=== PATIENT | female | born 1990 | race African-American/Black ===

== ENCOUNTER 2018-04-26 20:56 | Emergency (ER) | payer OTHER ==
[~2018-04-26] VITALS: Ht 167.6 cm; Wt 81.9 kg
[2018-04-26 21:01] VITALS: TEMP 36.8; Ht 167.6 cm; Wt 81.9 kg
[2018-04-26] MEDS ORDERED: IBUPROFEN 600 MG TAB PO STA (22:08)
[2018-04-26] MEDS ORDERED: ACETAMINOPHEN 500 MG TAB PO STA (22:08)
--- NOTE | 2018-04-26 22:37 | DIAGNOSTIC IMAGING REPORT ---
L WRIST MIN 3 VIEWS ROUTINE CLINICAL HISTORY: Left wrist pain status post trauma COMPARISON: None. DISCUSSION: No fractures or dislocations are visualized. IMPRESSION: No fractures identified. Electronically signed by: Emmanuel Jeter M.D. 04/26/2018 10:36 PM Dictated Date/Time: 04/26/2018 10:36 PM
--- NOTE | 2018-04-26 22:38 | DIAGNOSTIC IMAGING REPORT ---
R WRIST MIN 3 VIEWS ROUTINE CLINICAL HISTORY: Right wrist pain status post trauma COMPARISON: None. DISCUSSION: No fractures or dislocations are visualized. IMPRESSION: No fractures identified. Electronically signed by: Emmanuel Jeter M.D. 04/26/2018 10:37 PM Dictated Date/Time: 04/26/2018 10:36 PM
[2018-04-26 22:58] VITALS: BP 118/71; PULSE 69; O2SAT 100
--- NOTE | 2018-04-27 22:32 | EMERGENCY ROOM VISIT NOTE ---
History First contact with patient: 22:02 Chief Complaint: WRIST PAIN Stated Complaint: PAIN IN WRIST, SWOLLEN FINGERS History of Present Illness The patient is a 27 year old female who presents to the Emergency Room with complaints of bilateral wrist pain worsening over the past 3-4 days. The patient does not recall distinct injury or trauma to explain her symptoms. She is having swelling into her fingers with this. The patient states her symptoms are worse at night and make it difficult for her to sleep. 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 The patient does not have numbness or paresthesias. She does not have similar symptoms in the past. No fevers or chills. She rates her discomfort a 6/10. She has not taken anything [id number] for her discomfort. Review of Systems More than 10 systems were reviewed and otherwise negative with the exception of history of present illness. Past Medical/Surgical History No chronic medical disease Social History Smoking Status: Never Smoker Occupation Status: employed Physical Exam Vital Signs Date Time Temp Pulse Resp B/P (MAP) Pulse Ox O2 Delivery O2 Flow Rate FiO2 04/26/18 22:58 69 16 118/71 100 04/26/18 21:01 36.8 107 18 118/72 98 Room Air Physical Exam VITALS: Vitals are noted on the nurse's note and reviewed by myself. Vital signs stable. GENERAL: Well-developed, well-nourished, female, who is in no acute distress and resting comfortably. Patient is cooperative with the examination. HEART: Regular rate and rhythm without murmurs gallops or rubs. LUNGS: Clear to auscultation bilaterally without wheezes, rales or rhonchi. No retractions or accessory muscle use. MUSCULOSKELETAL: No muscle atrophy, erythema, or edema noted. No obvious tenderness of the bilateral wrists on palpation. No snuffbox tenderness. Negative Tinel's and Phalen's. Christmas Tree Contractor strength is 5/5 throughout. Medical Decision & Procedures ER Provider Diagnostic Interpretation: L WRIST MIN 3 VIEWS ROUTINE CLINICAL HISTORY: Left wrist pain status post trauma COMPARISON: None. DISCUSSION: No fractures or dislocations are visualized. IMPRESSION: No fractures identified. R WRIST MIN 3 VIEWS ROUTINE CLINICAL HISTORY: Right wrist pain status post trauma COMPARISON: None. DISCUSSION: No fractures or dislocations are visualized. IMPRESSION: No fractures identified. Medications Administered Medications (Trade) Dose Ordered Sig/Angel Route Start Time Stop Time Status Last Admin Dose Admin Acetaminophen (Tylenol Tab) 1,000 mg NOW STAT PO 04/26/18 22:08 04/26/18 22:10 DC 04/26/18 22:30 1,000 MG Ibuprofen (Motrin Tab) 600 mg NOW STAT PO 04/26/18 22:08 04/26/18 22:10 DC 04/26/18 22:30 600 MG ED Course Physical exam and history were performed. Nursing notes, EMR, and Medication List were personally reviewed. Patient appears to have bilateral wrist pain without distinct injury or trauma. The patient was given ibuprofen and Tylenol here in the department for comfort. X-rays were obtained and do not show acute fracture or dislocation per my and radiology interpretation. Overall the patient appears well for discharge home. I suspect her symptoms may be mechanical in nature or related to possible early carpal tunnel. I did discuss this at length with the patient and feel it is appropriate to follow with orthopedics for further care and management. The patient was given instructions on conservative treatment options and otherwise invited back to the ER with any new, worsening, or concerning symptoms. The chart was completed utilizing [employer] Speech Voice Recognition Software. Grammatical errors, random word insertions, pronoun errors, and incomplete sentences are an occasional consequence of this system due to software limitations, ambient noise, and hardware issues. Any formal questions or concerns about the content, text, or information contained within the body of this dictation should be directly addressed to the provider for clarification. . Medical Decision Differential diagnosis includes, but is not limited to: Sprain, strain, fracture , dislocation, subluxation, contusion, carpal tunnel, and others Impression Primary Impression: Pain in both wrists Departure Information Dispostion Home / Self-Care Condition GOOD Referrals No Doctor, Assigned (PCP) Moy Zelaya M.D. Forms HOME CARE DOCUMENTATION FORM, IMPORTANT VISIT INFORMATION Patient Instructions My [facility] Additional Instructions You were seen and evaluated today on an emergency basis only. This is not a substitute for, or an effort to provide, complete comprehensive medical care. It is not possible to recognize and treat all injuries or illnesses in a single emergency department visit. For this reason it is recommended that you followup with Orthopedics, Dr. Zelaya's office, with any ongoing or persisting symptoms. For baseline pain relief you may alternate ibuprofen and acetaminophen every 4 hours for pain control. Take 600 mg ibuprofen (Advil) and then 4 hours later take 1000 mg acetaminophen (Tylenol). Do not take more than 3000 mg acetaminophen in a single day. You are welcome to return to the emergency department anytime with new, worsening, or concerning symptoms.
== END 2018-04-26 23:00 | disposition home or self-care (01) ==
LOC: C.EDB 20:58 → EDSEX 20:58 → C.EDD 23:00
DX: M25.531 Pain in right wrist (principal); M25.532 Pain in left wrist

== ENCOUNTER 2018-11-01 22:38 | Observation (INO) ==
[2018-11-01] MEDS ORDERED: KETOROLAC 30 MG/ML VIAL IV STA (22:59)
[2018-11-01] MEDS ORDERED: SODIUM CHLORIDE 0.9% 1000ML 1,000 ML IV SCH (23:00)
[2018-11-01 23:36] LABS: Basophils # (auto) 0.04 K/uL (0-0.2); Basophils % (auto) 0.4 %; Eosinophils # (auto) 0.21 K/uL (0-0.5); Eosinophils % (auto) 2.1 %; Hematocrit (blood only) 37.7 % (37-47); Hemoglobin 12.9 g/dL (12.0-16.0); Immature Granulocytes # (auto) 0.02 K/uL (0.00-0.02); Immature Granulocytes % (auto) 0.2 %; Lymphocytes # (auto) 2.75 K/uL (1.2-3.4); Lymphocytes % (auto) 27.9 %; Mean Corpuscular Hgb Conc 34.2 g/dL (32-36); Mean Corpuscular Volume 86.1 fL (80-100); Mean Platelet Volume 10.8 fL (7.4-10.4); Monocytes # (auto) 0.61 K/uL (0.11-0.59); Monocytes % (auto) 6.2 %; Neutrophils # (auto) 6.21 K/uL (1.4-6.5); Neutrophils % (auto) 63.2 %; Platelet Count 302 K/uL (130-400); RDW Coefficient of Variation 12.3 % (11.5-14.5); RDW Standard Deviation 39.2 fL (36.4-46.3); Red Blood Count 4.38 M/uL (4.2-5.4); White Blood Count 9.84 K/uL (4.8-10.8)
[2018-11-01 23:41] LABS: Appearance Urine Clear (Clear); Bacteria Urine Automated Negative (Negative); Bilirubin Urine Negative (Negative); Cast Urine Automated 0 /lpf (0-5); Color Urine Yellow; Glucose Urine UA Negative (Negative); Ketones Urine Negative (Negative); Leukocyte Esterase Urine Negative (Negative); Nitrite Urine Negative (Negative); Protein Urine Negative (Negative); Specific Gravity Urine 1.009 (1.000-1.030); Urobilinogen Urine Negative (Negative); pH Urine 5.5 (4.5-7.5)
[2018-11-01 23:53] LABS: Albumin Level 3.8 gm/dl (3.4-5.0); BUN Creatinine Ratio 14.2 (10-20); Calcium 8.9 mg/dl (8.5-10.1); Creatinine Clr Calc Pharmacy 128.8 ml/min; Est GFR (Non-African American) 114.8; Potassium 3.5 mmol/L (3.5-5.1)
[2018-11-02 00:04] LABS: Albumin Globulin Ratio 0.9 (0.9-2); Bilirubin,Total 0.3 mg/dl (0.2-1); Globulin 4.3 gm/dl (2.5-4.0); Total Protein 8.1 gm/dl (6.4-8.2); Troponin I 0.016 ng/ml (0-0.045)
[2018-11-02 02:58] LABS: Magnesium 2.3 mg/dl (1.8-2.4)
[2018-11-02] MEDS ORDERED: KETOROLAC TROMETHAMINE 15 MG/ML VIAL IV PRN (02:59)
--- NOTE | 2018-11-02 03:00 | History & Physical Report ---
Date of Service November 02, 2018 Assessment & Plan (1) Chest pain: Atypical Likely musculoskeletal with reproducible tenderness Minimal troponin elevation OBS Medical telemetry NSAID rx trend troponin TTE RE chest pain Cardiology consult RE chest pain (ER provider already in touch with Dr. Jimenez.) DVT prophylaxis. SCDs Full code History of Present Illness Chief Complaint: Chest pain Primary Care Provider: NO PCP No significant medical history. 2 weeks history of intermittent chest pain noted on different areas of the chest , worse with motion. Nonpleuritic, no S OB, no fever, no chills. 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 Today, chest pain more intense. Patient also noted achy right-sided abdominal pain, without nausea without emesis. No constipation, no diarrhea, no dysuria symptoms. 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 Allergies Allergy/AdvReac Type Severity Reaction Status Date / Time shellfish derived Allergy Swelling Verified 11/01/18 23:16 of Lip/Tongue/Throat Home Medications Home Medications Medication Instructions Recorded Confirmed Type No Known Home Medications 11/01/18 11/01/18 History Past Med/Surg History Social History Current Living Situation: Other Current Living Situation Comment: roommate Other Information That Helps Us Care for You: No Feels Safe at Home: Yes Safety Concerns: Feels Safe At This Time Smoking Status: Never smoker Hx Alcohol Use: Yes Alcohol Intake Frequency: a few times a month Hx Substance Use: No Beliefs That Will Affect Care: None Preferred Language: Uzbek Communication Ability: Effective Grievance And Appeals Specialist Required: No Review of Systems As per HPI, all 10 systems reviewed, all other ROS negative Physical Exam 2 Vital Signs (Past 24 Hours): Last Vital Signs Temp 36.7 C 11/01/18 22:43 Pulse 83 11/02/18 02:01 Resp 23 11/02/18 02:01 BP 115/74 11/02/18 02:00 Pulse Ox 100 11/02/18 02:01 Physical Exam: GENERAL: Slightly anxious, obese , no respiratory distress SKIN: Normal color, warm HEENT: [place] palpebral conjunctivae, no ptosis, dry buccal mucosa NECK : Supple, short, no tenderness CHEST : CTA, anterior chest wall tenderness HEART : RRR, no obvious murmurs ABDOMEN: Some distention, nontender EXTREMITIES : No LE swelling/tenderness, no other conspicuous deformities noted NEUROLOGIC : Coherent, no facial asymmetry, no other gross focality Results & Data Laboratory Results Laboratory Results WBC 9.84 K/uL (4.8-10.8) 11/01/18 23:15 RBC 4.38 M/uL (4.2-5.4) 11/01/18 23:15 Hgb 12.9 g/dL (12.0-16.0) 11/01/18 23:15 Hct 37.7 % (37-47) 11/01/18 23:15 MCV 86.1 fL (80-100) 11/01/18 23:15 MCH 29.5 pg (25-34) 11/01/18 23:15 MCHC 34.2 g/dL (32-36) 11/01/18 23:15 RDW Std Deviation 39.2 fL (36.4-46.3) 11/01/18 23:15 RDW Coeff of Orlin 12.3 % (11.5-14.5) 11/01/18 23:15 Plt Count 302 K/uL (130-400) 11/01/18 23:15 MPV 10.8 fL (7.4-10.4) H 11/01/18 23:15 Immature Gran % (Auto) 0.2 % 11/01/18 23:15 Neut % (Auto) 63.2 % 11/01/18 23:15 Lymph % (Auto) 27.9 % 11/01/18 23:15 [place] % (Auto) 6.2 % 11/01/18 23:15 Eos % (Auto) 2.1 % 11/01/18 23:15 Baso % (Auto) 0.4 % 11/01/18 23:15 Immature Gran # (Auto) 0.02 K/uL (0.00-0.02) 11/01/18 23:15 Neut # (Auto) 6.21 K/uL (1.4-6.5) 11/01/18 23:15 Lymph # (Auto) 2.75 K/uL (1.2-3.4) 11/01/18 23:15 [place] # (Auto) 0.61 K/uL (0.11-0.59) H 11/01/18 23:15 Eos # (Auto) 0.21 K/uL (0-0.5) 11/01/18 23:15 Baso # (Auto) 0.04 K/uL (0-0.2) 11/01/18 23:15 D-Dimer < 190 ug/L FEU (0-500) 11/01/18 23:15 Sodium 137 mmol/L (136-145) 11/01/18 23:15 Potassium 3.5 mmol/L (3.5-5.1) 11/01/18 23:15 Chloride 108 mmol/L (98-107) H 11/01/18 23:15 Carbon Dioxide 27 mmol/L (21-32) 11/01/18 23:15 Anion Gap 2.0 (3-11) L 11/01/18 23:15 BUN 10 mg/dl (7-18) 11/01/18 23:15 Creatinine 0.72 mg/dl (0.6-1.2) 11/01/18 23:15 Est Cr Clr Drug Dosing 128.8 ml/min 11/01/18 23:15 Est GFR ( Amer) 133.0 11/01/18 23:15 Est GFR (Non-Af Amer) 114.8 11/01/18 23:15 BUN/Creatinine Ratio 14.2 (10-20) 11/01/18 23:15 Glucose 105 mg/dl (70-99) H 11/01/18 23:15 Calcium 8.9 mg/dl (8.5-10.1) 11/01/18 23:15 Magnesium 2.3 mg/dl (1.8-2.4) 11/01/18 23:15 Total Bilirubin 0.3 mg/dl (0.2-1) 11/01/18 23:15 AST 13 U/L (15-37) L 11/01/18 23:15 ALT 18 U/L (12-78) 11/01/18 23:15 Alkaline Phosphatase 88 U/L (45-117) 11/01/18 23:15 Troponin I 0.022 ng/ml (0-0.045) 11/02/18 00:57 Total Protein 8.1 gm/dl (6.4-8.2) 11/01/18 23:15 Albumin 3.8 gm/dl (3.4-5.0) 11/01/18 23:15 Globulin 4.3 gm/dl (2.5-4.0) H 11/01/18 23:15 Albumin/Globulin Ratio 0.9 (0.9-2) 11/01/18 23:15 Lipase 56 U/L (73-393) L 11/01/18 23:15 TSH 3.740 uIu/ml (0.300-4.500) 11/01/18 23:15 Urine Color Yellow 11/01/18 23:05 Urine Appearance Clear (Clear) 11/01/18 23:05 Urine pH 5.5 (4.5-7.5) 11/01/18 23:05 Ur Specific [place] 1.009 (1.000-1.030) 11/01/18 23:05 Urine Protein Negative (Negative) 11/01/18 23:05 Urine Glucose (UA) Negative (Negative) 11/01/18 23:05 Urine Ketones Negative (Negative) 11/01/18 23:05 Urine Blood Trace (Negative) H 11/01/18 23:05 Urine Nitrite Negative (Negative) 11/01/18 23:05 Urine Bilirubin Negative (Negative) 11/01/18 23:05 Urine Urobilinogen Negative (Negative) 11/01/18 23:05 Ur Leukocyte Esterase Negative (Negative) 11/01/18 23:05 Urine WBC (Auto) 1-5 /hpf (0-5) 11/01/18 23:05 Urine RBC (Auto) 0-4 /hpf (0-4) 11/01/18 23:05 U Hyaline Cast (Auto) 0 /lpf (0-5) 11/01/18 23:05 U Epithel Cells (Auto) 10-20 /lpf (0-5) H 11/01/18 23:05 Urine Bacteria (Auto) Negative (Negative) 11/01/18 23:05 POC Ur Test NEG (NEG) 11/01/18 23:05 Diagnostic Findings Chest x-ray as per my interpretation borderline cardiomegaly CT abdomen pelvis initial read no acute pathology EKG as per my interpretation rate 80, NSR, T wave flattening inferior leads
[2018-11-02] MEDS ORDERED: IOVERSOL 100ml IV PRN (03:44)
[2018-11-02] MEDS ORDERED: KETOROLAC TROMETHAMINE 15 MG/ML VIAL ONE (03:45)
[2018-11-02] MEDS ORDERED: ACETAMINOPHEN 325 MG TAB PO PRN (04:25)
[2018-11-02] MEDS ORDERED: LORazepam 0.5 MG/1 ML VIAL IV PRN (04:25)
[2018-11-02] MEDS ORDERED: NSS + 20MEQ KCL 20 MEQ/1,000 ML BAG IV SCH (04:25)
[2018-11-02] MEDS ORDERED: PROCHLORPERAZINE 5 MG in SYRINGE 4 ML IV PRN (04:25)
[2018-11-02] MEDS ORDERED: TRAMADOL HCL 50 MG TABLET PO PRN (04:25)
[2018-11-02 06:12] LABS: Partial Thromboplastin Ratio 1.1; Partial Thromboplastin Time 29.7 Seconds (21.0-31.0)
[2018-11-02 06:20] LABS: C Reactive Protein 0.44 mg/dl (0-0.29); Troponin I < 0.015 ng/ml (0-0.045)
[2018-11-02] MEDS ORDERED: NSS + 20MEQ KCL 20 MEQ/1,000 ML BAG IV ONE (06:34)
--- NOTE | 2018-11-02 06:48 | CT Scan Report ---
CT abd pelvis IV con only CLINICAL HISTORY: Right-sided abdominal pain COMPARISON STUDY: None. TECHNIQUE: The patient was scanned in a dynamic helical fashion during intravenous administration of 93 cc of Optiray 320. A dose lowering technique was utilized adhering to the principles of ALARA. CT DOSE: 385.44 mGy.cm FINDINGS: Lower chest: The heart is normal in size and configuration, without pericardial effusion. The lung ba ses and pleural spaces are clear. Liver: The contrast-enhanced liver is normal in size, contour, and attenuation. There is no intrahepa tic biliary ductal dilatation. The hepatic veins and portal veins are patent. Gallbladder: Unremarkable. Spleen: Normal in size and attenuation. Pancreas: Unremarkable. Adrenal glands: Unremarkable. Kidneys: There is a 3 mm left renal hypodensity likely representing a cyst. There is no hydronephrosi s. Bowel: There are no transition zones indicate bowel obstruction. There is no evidence of acute divert iculitis. The appendix appears normal. Peritoneum: There is no intraperitoneal free air or abdominal ascites. Vasculature: The abdominal aorta is normal in course and caliber. Adenopathy: None. Pelvic viscera: The bladder, and pelvic viscera are unremarkable. Skeletal structures: No destructive osseous lesions are seen. IMPRESSION: 1. No acute intra-abdominal or pelvic findings 2. No evidence of bowel obstruction. No evidence of free air 3. Normal appendix. No evidence of acute diverticulitis. Electronically signed by: Emmanuel Jeter M.D. 11/02/2018 6:47 AM
--- NOTE | 2018-11-02 07:01 | XRay Report ---
XR chest 2V routine HISTORY: Atypical chest pain COMPARISON: None. FINDINGS: The lungs are clear. Cardiac silhouette is normal in size. No pleural effusions. No pneumot horax. IMPRESSION: No acute process. Electronically signed by: Mark Pierre M.D. 11/02/2018 6:59 AM
[2018-11-02] MEDS ORDERED: IBUPROFEN 200 MG TAB PO PRN (07:06)
--- NOTE | 2018-11-02 07:35 | Emergency Department Note ---
History of Present Illness General Chief complaint: Cardiac Assessment Stated complaint: DULL CHEST PAINS, DISCOMFORT Time Seen by Provider: 11/01/18 22:50 History of Present Illness Maximum Pain Intensity: 4 This is a 28-year-old female presenting to the emergency department with complaint of chest pain symptoms for the past 2 weeks. Patient states her symptoms initially began in the right side chest, and then the central chest. She was participating in a gymnastics-like activity tonight, roughly 2-3 hours prior to arrival, when she felt a squeezing in the left side of her chest. The patient does not have a history of diabetes or other chronic medical disease. She has not taken anything [id number] for her discomfort which she currently rates a 4/10. The pain does not currently radiate, and is constant. She has not had lightheadedness or dizziness. She does not report obvious abdominal discomfort, and denies chance of . Activity does seem to worsen her symptoms. Home Medications Home Medications Medication Instructions Recorded Confirmed Type No Known Home Medications 11/01/18 11/01/18 History Allergies Allergy/AdvReac Type Severity Reaction Status Date / Time shellfish derived Allergy Swelling Verified 11/01/18 23:16 of Lip/Tongue/Throat Past Med/Surg History Medical History No chronic diseases present No significant past surgical history Social History Current Living Situation: Other Current Living Situation Comment: roommate Other Information That Helps Us Care for You: No Feels Safe at Home: Yes Safety Concerns: Feels Safe At This Time Smoking Status: Never smoker Hx Alcohol Use: Yes Alcohol Intake Frequency: a few times a month Hx Substance Use: No Beliefs That Will Affect Care: None Preferred Language: Chilean Communication Ability: Effective Digital Media Buyer Required: No Review of Systems A total of 10 systems reviewed and were otherwise negative Physical Exam Vital Signs Vital Signs - 24 hr 11/01/18 22:43 11/01/18 22:52 11/01/18 22:59 Temperature 36.7 C Temperature Source Oral Sepsis Action Taken by Nursing No Action Required Pulse Rate 92 H 89 Pulse Rate [Left Brachial] Respiratory Rate 20 16 17 Respiratory Depth Normal Blood Pressure 124/64 99/80 L Blood Pressure [Left Arm] Blood Pressure Mean 84 86 Blood Pressure Mean [Left Arm] Blood Pressure Position [Left Arm] Pulse Oximetry 98 94 Oxygen Delivery Method Room Air 11/01/18 23:00 11/01/18 23:02 11/01/18 23:22 Temperature Temperature Source Sepsis Action Taken by Nursing Pulse Rate 84 81 84 Pulse Rate [Left Brachial] Respiratory Rate 15 12 15 Respiratory Depth Blood Pressure 103/73 Blood Pressure [Left Arm] Blood Pressure Mean 83 Blood Pressure Mean [Left Arm] Blood Pressure Position [Left Arm] Pulse Oximetry 100 100 Oxygen Delivery Method Room Air 11/01/18 23:40 11/02/18 00:00 11/02/18 00:01 Temperature Temperature Source Sepsis Action Taken by Nursing Pulse Rate 86 81 83 Pulse Rate [Left Brachial] Respiratory Rate 20 14 16 Respiratory Depth Blood Pressure 114/81 Blood Pressure [Left Arm] Blood Pressure Mean 92 Blood Pressure Mean [Left Arm] Blood Pressure Position [Left Arm] Pulse Oximetry 100 100 Oxygen Delivery Method 11/02/18 00:02 11/02/18 00:21 11/02/18 00:30 Temperature Temperature Source Sepsis Action Taken by Nursing Pulse Rate 78 81 80 Pulse Rate [Left Brachial] Respiratory Rate 19 21 19 Respiratory Depth Blood Pressure 112/74 Blood Pressure [Left Arm] Blood Pressure Mean 86 Blood Pressure Mean [Left Arm] Blood Pressure Position [Left Arm] Pulse Oximetry 100 100 100 Oxygen Delivery Method 11/02/18 00:40 11/02/18 01:00 11/02/18 01:01 Temperature Temperature Source Sepsis Action Taken by Nursing Pulse Rate 70 73 77 Pulse Rate [Left Brachial] Respiratory Rate 16 16 13 Respiratory Depth Blood Pressure 112/77 Blood Pressure [Left Arm] Blood Pressure Mean 88 Blood Pressure Mean [Left Arm] Blood Pressure Position [Left Arm] Pulse Oximetry 100 100 99 Oxygen Delivery Method Room Air 11/02/18 01:21 11/02/18 01:31 11/02/18 01:32 Temperature Temperature Source Sepsis Action Taken by Nursing Pulse Rate 70 78 101 H Pulse Rate [Left Brachial] Respiratory Rate 17 24 19 Respiratory Depth Blood Pressure 127/80 Blood Pressure [Left Arm] Blood Pressure Mean 95 Blood Pressure Mean [Left Arm] Blood Pressure Position [Left Arm] Pulse Oximetry 99 99 Oxygen Delivery Method Room Air 11/02/18 01:40 11/02/18 02:00 11/02/18 02:01 Temperature Temperature Source Sepsis Action Taken by Nursing Pulse Rate 72 69 83 Pulse Rate [Left Brachial] Respiratory Rate 22 20 23 Respiratory Depth Blood Pressure 115/74 Blood Pressure [Left Arm] Blood Pressure Mean 87 Blood Pressure Mean [Left Arm] Blood Pressure Position [Left Arm] Pulse Oximetry 99 100 100 Oxygen Delivery Method Room Air 11/02/18 02:20 11/02/18 02:31 11/02/18 02:40 Temperature Temperature Source Sepsis Action Taken by Nursing Pulse Rate 83 76 78 Pulse Rate [Left Brachial] Respiratory Rate 19 19 18 Respiratory Depth Blood Pressure 119/74 Blood Pressure [Left Arm] Blood Pressure Mean 89 Blood Pressure Mean [Left Arm] Blood Pressure Position [Left Arm] Pulse Oximetry 98 99 99 Oxygen Delivery Method 11/02/18 03:01 11/02/18 03:03 11/02/18 03:20 Temperature Temperature Source Sepsis Action Taken by Nursing Pulse Rate 73 77 74 Pulse Rate [Left Brachial] Respiratory Rate 21 20 17 Respiratory Depth Blood Pressure 144/102 H Blood Pressure [Left Arm] Blood Pressure Mean 91 116 Blood Pressure Mean [Left Arm] Blood Pressure Position [Left Arm] Pulse Oximetry 98 98 97 Oxygen Delivery Method Room Air 11/02/18 03:44 11/02/18 04:10 11/02/18 08:09 Temperature 36.5 C 36.6 C Temperature Source Oral Oral Sepsis Action Taken by Nursing Pulse Rate 101 H Pulse Rate [Left Brachial] 66 73 Respiratory Rate 29 H 16 18 Respiratory Depth Blood Pressure Blood Pressure [Left Arm] 113/67 112/75 Blood Pressure Mean Blood Pressure Mean [Left Arm] 82 87 Blood Pressure Position [Left Arm] Lying Pulse Oximetry 96 94 Oxygen Delivery Method Room Air Room Air VITALS: Vitals are noted on the nurse's note and reviewed by myself. Vital signs stable. GENERAL: Well-developed, well-nourished, black female, who is in no acute distress and resting comfortably. Patient is cooperative with the examination. HEAD: Normocephalic atraumatic. EARS: External ear normal. External auditory canals clear, tympanic membranes pearly francis without erythema or effusion bilaterally. EYES: Pupils equal round and reactive to light and accommodation. Conjunctivae without injection, sclerae without icterus. Extraocular movements intact. NOSE: Patent, turbinates without inflammation or discharge. MOUTH: Mucous membranes moist. Tonsils are not enlarged. Pharynx without erythema, blood, or exudate. Uvula midline. Airway patent. NECK: Supple without nuchal rigidity. No lymphadenopathy. No thyromegaly. Cervical spine is nontender. HEART: Regular rate and rhythm without murmurs gallops or rubs. LUNGS: Clear to auscultation bilaterally without wheezes, rales or rhonchi. No retractions or accessory muscle use. ABDOMEN: Positive normal bowel sounds x 4. Soft, nontender, without masses or organomegaly. No guarding or rebound tenderness. MUSCULOSKELETAL: No muscle atrophy, erythema, or edema noted. Full range of motion in all extremities. No tenderness to palpation. Normal gait. Strength 5/5 throughout. NEURO: Patient was alert and oriented to person place and time. CN II through XII grossly intact. No focal neurological deficits. Deep tendon reflexes 2+ throughout. SKIN: The skin was without rashes, erythema, edema, or bruising. Capillary refill less than 2 seconds. Course Administered Medications Potassium Chloride/Sodium Chloride (Normal Saline W/20 Meq Kcl) 20 meq in 1, 000 mls @ 75 mls/hr IV .[id number] [facility] Stop: 11/02/18 17:44 Last Admin: 11/02/18 05:40 Dose: 75 mls/hr Ioversol (Optiray 320 100ml) 100 ml IV ONCE PRN PRN Reason: Interaction Checking Stop: 11/06/18 03:43 Last Admin: 11/02/18 03:44 Dose: 93 ml Discontinued Medications Sodium Chloride (Nss 1000ml) 1,000 mls @ 999 mls/hr IV .[id number] SADAF Stop: 11/02/18 00:00 Last Infusion: 11/02/18 00:29 Dose: 0 mls/hr Admin: 11/01/18 23:26 Dose: 999 mls/hr Ketorolac Tromethamine (Toradol) 30 mg IV NOW STA Stop: 11/01/18 23:00 Last Admin: 11/01/18 23:26 Dose: 30 mg Ketorolac Tromethamine (Toradol) Confirm Administered Dose 15 mg .ROUTE .STK- MED ONE Stop: 11/02/18 03:46 Last Admin: 11/02/18 03:49 Dose: 15 mg Medical Decision Making Differential Diagnosis Differential diagnosis includes, but is not limited to: Myocardial infarction, dysrhythmia, pericarditis, pneumothorax, aortic aneurysm/dissection, DVT/PE, anxiety, GERD, PUD, electrolyte imbalance, thyroid disorder, pneumonia, bronchitis, pancreatitis, and others Laboratory Data Result diagrams: 11/01/18 23:15 11/01/18 23:15 Lab Results 11/01/18 11/01/18 11/01/18 Range/Units 23:05 23:05 23:15 WBC 9.84 (4.8-10.8) K/uL RBC 4.38 (4.2-5.4) M/uL Hgb 12.9 (12.0-16.0) g/dL Hct 37.7 (37-47) % MCV 86.1 (80-100) fL MCH 29.5 (25-34) pg MCHC 34.2 (32-36) g/dL RDW Std Deviation 39.2 (36.4-46.3) fL RDW Coeff of Orlin 12.3 (11.5-14.5) % Plt Count 302 (130-400) K/uL MPV 10.8 H (7.4-10.4) fL Immature Gran % (Auto) 0.2 % Neut % (Auto) 63.2 % Lymph % (Auto) 27.9 % Page % (Auto) 6.2 % Eos % (Auto) 2.1 % Baso % (Auto) 0.4 % Immature Gran # (Auto) 0.02 (0.00-0.02) K/uL Neut # (Auto) 6.21 (1.4-6.5) K/uL Lymph # (Auto) 2.75 (1.2-3.4) K/uL Page # (Auto) 0.61 H (0.11-0.59) K/uL Eos # (Auto) 0.21 (0-0.5) K/uL Baso # (Auto) 0.04 (0-0.2) K/uL ESR (0-21) mm/hr APTT (21.0-31.0) Seconds PTT Ratio D-Dimer (0-500) ug/L FEU Sodium (136-145) mmol/L Potassium (3.5-5.1) mmol/L Chloride (98-107) mmol/L Carbon Dioxide (21-32) mmol/L Anion Gap (3-11) BUN (7-18) mg/dl Creatinine (0.6-1.2) mg/dl Est Cr Clr Drug Dosing ml/min Est GFR ( Amer) Est GFR (Non-Af Amer) BUN/Creatinine Ratio (10-20) Glucose (70-99) mg/dl Calcium (8.5-10.1) mg/dl Magnesium (1.8-2.4) mg/dl Total Bilirubin (0.2-1) mg/dl AST (15-37) U/L ALT (12-78) U/L Alkaline Phosphatase (45-117) U/L Troponin I (0-0.045) ng/ml C-Reactive Protein (0-0.29) mg/dl Total Protein (6.4-8.2) gm/dl Albumin (3.4-5.0) gm/dl Globulin (2.5-4.0) gm/dl Albumin/Globulin Ratio (0.9-2) Lipase (73-393) U/L TSH (0.300-4.500) uIu/ml Urine Color Yellow Urine Appearance Clear (Clear) Urine pH 5.5 (4.5-7.5) Ur Specific Dwale 1.009 (1.000-1.030) Urine Protein Negative (Negative) Urine Glucose (UA) Negative (Negative) Urine Ketones Negative (Negative) Urine Blood Trace H (Negative) Urine Nitrite Negative (Negative) Urine Bilirubin Negative (Negative) Urine Urobilinogen Negative (Negative) Ur Leukocyte Esterase Negative (Negative) Urine WBC (Auto) 1-5 (0-5) /hpf Urine RBC (Auto) 0-4 (0-4) /hpf U Hyaline Cast (Auto) 0 (0-5) /lpf U Epithel Cells (Auto) 10-20 H (0-5) /lpf Urine Bacteria (Auto) Negative (Negative) POC Ur Test NEG (NEG) 11/01/18 11/01/18 11/02/18 Range/Units 23:15 23:15 00:57 WBC (4.8-10.8) K/uL RBC (4.2-5.4) M/uL Hgb (12.0-16.0) g/dL Hct (37-47) % MCV (80-100) fL MCH (25-34) pg MCHC (32-36) g/dL RDW Std Deviation (36.4-46.3) fL RDW Coeff of Orlin (11.5-14.5) % Plt Count (130-400) K/uL MPV (7.4-10.4) fL Immature Gran % (Auto) % Neut % (Auto) % Lymph % (Auto) % Page % (Auto) % Eos % (Auto) % Baso % (Auto) % Immature Gran # (Auto) (0.00-0.02) K/uL Neut # (Auto) (1.4-6.5) K/uL Lymph # (Auto) (1.2-3.4) K/uL Page # (Auto) (0.11-0.59) K/uL Eos # (Auto) (0-0.5) K/uL Baso # (Auto) (0-0.2) K/uL ESR (0-21) mm/hr APTT (21.0-31.0) Seconds PTT Ratio D-Dimer < 190 (0-500) ug/L FEU Sodium 137 (136-145) mmol/L Potassium 3.5 (3.5-5.1) mmol/L Chloride 108 H (98-107) mmol/L Carbon Dioxide 27 (21-32) mmol/L Anion Gap 2.0 L (3-11) BUN 10 (7-18) mg/dl Creatinine 0.72 (0.6-1.2) mg/dl Est Cr Clr Drug Dosing 128.8 ml/min Est GFR ( Amer) 133.0 Est GFR (Non-Af Amer) 114.8 BUN/Creatinine Ratio 14.2 (10-20) Glucose 105 H (70-99) mg/dl Calcium 8.9 (8.5-10.1) mg/dl Magnesium 2.3 (1.8-2.4) mg/dl Total Bilirubin 0.3 (0.2-1) mg/dl AST 13 L (15-37) U/L ALT 18 (12-78) U/L Alkaline Phosphatase 88 (45-117) U/L Troponin I 0.016 0.022 (0-0.045) ng/ml C-Reactive Protein (0-0.29) mg/dl Total Protein 8.1 (6.4-8.2) gm/dl Albumin 3.8 (3.4-5.0) gm/dl Globulin 4.3 H (2.5-4.0) gm/dl Albumin/Globulin Ratio 0.9 (0.9-2) Lipase 56 L (73-393) U/L TSH 3.740 (0.300-4.500) uIu/ml Urine Color Urine Appearance (Clear) Urine pH (4.5-7.5) Ur Specific Dwale (1.000-1.030) Urine Protein (Negative) Urine Glucose (UA) (Negative) Urine Ketones (Negative) Urine Blood (Negative) Urine Nitrite (Negative) Urine Bilirubin (Negative) Urine Urobilinogen (Negative) Ur Leukocyte Esterase (Negative) Urine WBC (Auto) (0-5) /hpf Urine RBC (Auto) (0-4) /hpf U Hyaline Cast (Auto) (0-5) /lpf U Epithel Cells (Auto) (0-5) /lpf Urine Bacteria (Auto) (Negative) POC Ur Test (NEG) 11/02/18 11/02/18 11/02/18 Range/Units 05:34 05:34 05:34 WBC (4.8-10.8) K/uL RBC (4.2-5.4) M/uL Hgb (12.0-16.0) g/dL Hct (37-47) % MCV (80-100) fL MCH (25-34) pg MCHC (32-36) g/dL RDW Std Deviation (36.4-46.3) fL RDW Coeff of Orlin (11.5-14.5) % Plt Count (130-400) K/uL MPV (7.4-10.4) fL Immature Gran % (Auto) % Neut % (Auto) % Lymph % (Auto) % Page % (Auto) % Eos % (Auto) % Baso % (Auto) % Immature Gran # (Auto) (0.00-0.02) K/uL Neut # (Auto) (1.4-6.5) K/uL Lymph # (Auto) (1.2-3.4) K/uL Page # (Auto) (0.11-0.59) K/uL Eos # (Auto) (0-0.5) K/uL Baso # (Auto) (0-0.2) K/uL ESR 14 (0-21) mm/hr APTT 29.7 (21.0-31.0) Seconds PTT Ratio 1.1 D-Dimer (0-500) ug/L FEU Sodium (136-145) mmol/L Potassium (3.5-5.1) mmol/L Chloride (98-107) mmol/L Carbon Dioxide (21-32) mmol/L Anion Gap (3-11) BUN (7-18) mg/dl Creatinine (0.6-1.2) mg/dl Est Cr Clr Drug Dosing ml/min Est GFR ( Amer) Est GFR (Non-Af Amer) BUN/Creatinine Ratio (10-20) Glucose (70-99) mg/dl Calcium (8.5-10.1) mg/dl Magnesium (1.8-2.4) mg/dl Total Bilirubin (0.2-1) mg/dl AST (15-37) U/L ALT (12-78) U/L Alkaline Phosphatase (45-117) U/L Troponin I < 0.015 (0-0.045) ng/ml C-Reactive Protein 0.44 H (0-0.29) mg/dl Total Protein (6.4-8.2) gm/dl Albumin (3.4-5.0) gm/dl Globulin (2.5-4.0) gm/dl Albumin/Globulin Ratio (0.9-2) Lipase (73-393) U/L TSH (0.300-4.500) uIu/ml Urine Color Urine Appearance (Clear) Urine pH (4.5-7.5) Ur Specific Dw[place] (1.000-1.030) Urine Protein (Negative) Urine Glucose (UA) (Negative) Urine Ketones (Negative) Urine Blood (Negative) Urine Nitrite (Negative) Urine Bilirubin (Negative) Urine Urobilinogen (Negative) Ur Leukocyte Esterase (Negative) Urine WBC (Auto) (0-5) /hpf Urine RBC (Auto) (0-4) /hpf U Hyaline Cast (Auto) (0-5) /lpf U Epithel Cells (Auto) (0-5) /lpf Urine Bacteria (Auto) (Negative) POC Ur Test (NEG) Imaging Data Radiologist's Impression: XR chest 2V routine HISTORY: Atypical chest pain COMPARISON: None. FINDINGS: The lungs are clear. Cardiac silhouette is normal in size. No pleural effusions. No pneumothorax. IMPRESSION: No acute process. ECG Data Additional Comments: Normal sinus rhythm with sinus arrhythmia @77bpm No ST elevation Normal ECG No previous ECGs available MDM Narrative Physical exam and history were performed. Nursing notes, EMR, and Medication List were personally reviewed. Patient appears to have atypical chest pain symptoms for the past 2 weeks. Her symptoms appear to have worsened today after participating in gymnastics-like activity. EKG is normal sinus rhythm as above. IV access was established and labs were obtained. The patient was placed on the cardiac rn. She was given IV fluids and IV Toradol for comfort. The patient blood work is as above and was reviewed. She does not have a significantly elevated white blood cell count, gross anemia, bandemia, or significant electrolyte imbalance. Lipase and transaminases are not diagnostic. TSH shows euthyroid state. Initial troponin was detectable at 0.016. 90-minute repeat troponin was also performed, and was detected at 0.022. The case was discussed with my attending physician, Dr. Lance, who remained involved in care and decision-making. Overall the patient does not appear toxic , and does feel improved after the Toradol. Her symptoms could be related to ischemia, although she does not have a grossly positive troponin. She may also have pericarditis or myocarditis. The case was discussed with the on-call [facility] cardiology team, and recommendation was for further evaluation here in the hospital. I did discuss the case with the on-call [facility] hospitalist who agreed to evaluate the patient here in the department. Please see the hospitalist dictation for further patient course, plan, and disposition. The chart was completed utilizing [employer] Speech Voice Recognition Software. Grammatical errors, random word insertions, pronoun errors, and incomplete sentences are an occasional consequence of this system due to software limitations, ambient noise, and hardware issues. Any formal questions or concerns about the content, text, or information contained within the body of this dictation should be directly addressed to the provider for clarification. . Impression & Plan Atypical chest pain, Elevated troponin Discharge Plan Visit Data *Final* Discharge Date/Time: 11/02/18 04:00 Chief Complaint: Cardiac Assessment Stated Complaint: DULL CHEST PAINS, DISCOMFORT ED Provider: Ezra Lance ED Midlevel Provider: Moy Saeed Discharge Problem: Atypical chest pain, Elevated troponin Patient Disposition: Admitted As Inpatient Discharge Instructions Interventions: ED Discharge Assessment Last Done: 11/02/18 04:00
--- NOTE | 2018-11-02 10:50 | Cardiology Consultation ---
Date of Consultation November 02, 2018 Assessment & Plan (1) Atypical chest pain: 28-year-old female with atypical symptoms for angina with chest wall tenderness with movement and twisting. Cardiac enzymes normal EKG normal echocardiogram normal. No underlying significant risk factors for coronary disease no prior symptoms suggest congenital disease Impression: Noncardiac chest pain Recommendations: Patient denies prior history of lipid assessment, would add LDL to a.m. lab already drawn complete risk stratification Follow-up with PCP History of Present Illness Reason for Consultation: Chest pain, atypical Requesting Physician: Dr. Buster Frias Attending Physician: Chetna Forrester MD History of Present Illness Patient is a 28-year-old female without prior history of cardiac disease or significant underlying risk factor who presented to the emergency room noting approximately 2 weeks history of chest discomfort with movement and activity such as twisting or turning. Patient denied pleuritic component. Notes no specifically exertion relationship. Notes no tachypalpitations syncope near syncope. Notes no unexplained fevers chills or infections. Denies cough hoarseness wheeze or hemoptysis melena hematochezia dysuria hematuria. Notes no bleeding difficulties. Notes no recent injuries or falls. Appetite and weight have been stable with no change. Notes no sleep disruption. Denies prior history of rheumatic fever scarlet fever renal or hepatic disease. No prior history of myocardial infarction congenital heart disease or congestive heart failure Allergies Allergy/AdvReac Type Severity Reaction Status Date / Time shellfish derived Allergy Swelling Verified 11/01/18 23:16 of Lip/Tongue/Throat Home Medications Home Medications Medication Instructions Recorded Confirmed Type No Known Home Medications 11/01/18 11/01/18 History Patient History Medical History No chronic diseases present No significant past surgical history Social History Current Living Situation: Other Current Living Situation Comment: roommate Other Information That Helps Us Care for You: No Feels Safe at Home: Yes Safety Concerns: Feels Safe At This Time Smoking Status: Never smoker Hx Alcohol Use: Yes Alcohol Intake Frequency: a few times a month Hx Substance Use: No Beliefs That Will Affect Care: None Preferred Language: Slovak Communication Ability: Effective Senior Training Specialist Required: No Review of Systems As per HPI and negative Physical Exam 2 Vital Signs (Past 24 Hours): Last Vital Signs Temp 36.6 C 11/02/18 08:09 Pulse 73 11/02/18 08:09 Resp 18 11/02/18 08:09 BP 112/75 11/02/18 08:09 Pulse Ox 94 11/02/18 08:09 Constitutional: WD/WN, vitals as above Eyes: PERRL, conjunctivae normal, anicteric sclerae ENMT: external ear and nose normal, oropharynx normal Neck: trachea midline, no thyromegaly Respiratory: normal respiratory effort, lungs clear to auscultation Cardiovascular: RRR, no murmur, no edema Heart Sounds: no gallop Palpation: normal PMI Gastrointestinal (Abdomen): normal bowel sounds, soft, nontender, no hepatosplenomegaly Musculoskeletal: no cyanosis or clubbing, extremities motor strength 5/5 Neurologic: PERRL, EOMI, accommodation nl, no face palsy, no dysarthria Psychiatric: A+Ox3, euthymic affect Results & Data Laboratory Results Laboratory Results - last 24 hr 11/01/18 11/01/18 11/01/18 23:05 23:05 23:15 WBC 9.84 RBC 4.38 Hgb 12.9 Hct 37.7 MCV 86.1 MCH 29.5 MCHC 34.2 RDW Std Deviation 39.2 RDW Coeff of Orlin 12.3 Plt Count 302 MPV 10.8 H Immature Gran % (Auto) 0.2 Neut % (Auto) 63.2 Lymph % (Auto) 27.9 [place] % (Auto) 6.2 Eos % (Auto) 2.1 Baso % (Auto) 0.4 Immature Gran # (Auto) 0.02 Neut # (Auto) 6.21 Lymph # (Auto) 2.75 [place] # (Auto) 0.61 H Eos # (Auto) 0.21 Baso # (Auto) 0.04 ESR APTT PTT Ratio D-Dimer Sodium Potassium Chloride Carbon Dioxide Anion Gap BUN Creatinine Est Cr Clr Drug Dosing Est GFR ( Amer) Est GFR (Non-Af Amer) BUN/Creatinine Ratio Glucose Calcium Magnesium Total Bilirubin AST ALT Alkaline Phosphatase Troponin I C-Reactive Protein Total Protein Albumin Globulin Albumin/Globulin Ratio Lipase TSH Urine Color Yellow Urine Appearance Clear Urine pH 5.5 Ur Specific [place] 1.009 Urine Protein Negative Urine Glucose (UA) Negative Urine Ketones Negative Urine Blood Trace H Urine Nitrite Negative Urine Bilirubin Negative Urine Urobilinogen Negative Ur Leukocyte Esterase Negative Urine WBC (Auto) 1-5 Urine RBC (Auto) 0-4 U Hyaline Cast (Auto) 0 U Epithel Cells (Auto) 10-20 H Urine Bacteria (Auto) Negative POC Ur Test NEG 11/01/18 11/01/18 11/02/18 23:15 23:15 00:57 WBC RBC Hgb Hct MCV MCH MCHC RDW Std Deviation RDW Coeff of Orlin Plt Count MPV Immature Gran % (Auto) Neut % (Auto) Lymph % (Auto) [place] % (Auto) Eos % (Auto) Baso % (Auto) Immature Gran # (Auto) Neut # (Auto) Lymph # (Auto) [place] # (Auto) Eos # (Auto) Baso # (Auto) ESR APTT PTT Ratio D-Dimer < 190 Sodium 137 Potassium 3.5 Chloride 108 H Carbon Dioxide 27 Anion Gap 2.0 L BUN 10 Creatinine 0.72 Est Cr Clr Drug Dosing 128.8 Est GFR ( Amer) 133.0 Est GFR (Non-Af Amer) 114.8 BUN/Creatinine Ratio 14.2 Glucose 105 H Calcium 8.9 Magnesium 2.3 Total Bilirubin 0.3 AST 13 L ALT 18 Alkaline Phosphatase 88 Troponin I 0.016 0.022 C-Reactive Protein Total Protein 8.1 Albumin 3.8 Globulin 4.3 H Albumin/Globulin Ratio 0.9 Lipase 56 L TSH 3.740 Urine Color Urine Appearance Urine pH Ur Specific [place] Urine Protein Urine Glucose (UA) Urine Ketones Urine Blood Urine Nitrite Urine Bilirubin Urine Urobilinogen Ur Leukocyte Esterase Urine WBC (Auto) Urine RBC (Auto) U Hyaline Cast (Auto) U Epithel Cells (Auto) Urine Bacteria (Auto) POC Ur Test 11/02/18 11/02/18 11/02/18 05:34 05:34 05:34 WBC RBC Hgb Hct MCV MCH MCHC RDW Std Deviation RDW Coeff of Orlin Plt Count MPV Immature Gran % (Auto) Neut % (Auto) Lymph % (Auto) [place] % (Auto) Eos % (Auto) Baso % (Auto) Immature Gran # (Auto) Neut # (Auto) Lymph # (Auto) [place] # (Auto) Eos # (Auto) Baso # (Auto) ESR 14 APTT 29.7 PTT Ratio 1.1 D-Dimer Sodium Potassium Chloride Carbon Dioxide Anion Gap BUN Creatinine Est Cr Clr Drug Dosing Est GFR ( Amer) Est GFR (Non-Af Amer) BUN/Creatinine Ratio Glucose Calcium Magnesium Total Bilirubin AST ALT Alkaline Phosphatase Troponin I < 0.015 C-Reactive Protein 0.44 H Total Protein Albumin Globulin Albumin/Globulin Ratio Lipase TSH Urine Color Urine Appearance Urine pH Ur Specific [place] Urine Protein Urine Glucose (UA) Urine Ketones Urine Blood Urine Nitrite Urine Bilirubin Urine Urobilinogen Ur Leukocyte Esterase Urine WBC (Auto) Urine RBC (Auto) U Hyaline Cast (Auto) U Epithel Cells (Auto) Urine Bacteria (Auto) POC Ur Test Diagnostic Findings Echocardiogram: Normal study with normal LV systolic function, wall motion and ejection fraction. No valvular disease, no pericardial effusion Chest x-ray normal size cardiac silhouette no infiltrate or edema ECG Additional Comments: 01-NOV-2018 22:56:49 [facility] Normal sinus rhythm with sinus arrhythmia Normal ECG No previous ECGs available
[2018-11-02 12:02] LABS: Chol HDL Ratio 5; Cholesterol 150 mg/dl (0-200); HDL Cholesterol 28 mg/dl; LDL Cholesterol Calculated 95 mg/dl; Triglycerides 137 mg/dl (0-150); VLDL Cholesterol 27 mg/dl
--- NOTE | 2018-11-02 12:50 | Hospitalist Progress Note ---
Date of Service November 02, 2018 Assessment & Plan (1) Chest pain: Atypical presentation Mostly related to musculoskeletal with reproducible tenderness Has been participated in gymnastic type exercise Troponinx 3 sets negative No arrhythmia on tele monitor Echo showed no wall motion abnormality with normal EF Continue NSAIDs PRN for pain cardiology on board Ok from cardiology standpoint to discharge home CODE STATUS FULL CODE Disposition Will discharge home today Follow up with Dr. Charles on 11/07 @ 11:05 [facility] [address], [place] [address] Phone: Subjective Pt was seen and examined Lying in bed with no distress Pt said that her chest pain improves She said that she has been doing gymnastic type exercise by pulling herself up from a bar She said that only feels tender with turning or twisting her upper limb area Denies any palpitation, dizziness and SOB Physical Exam 2 Vital Signs (Past 24 Hours): Last Vital Signs Temp 36.6 C 11/02/18 08:09 Pulse 73 11/02/18 08:09 Resp 18 11/02/18 08:09 BP 112/75 11/02/18 08:09 Pulse Ox 94 11/02/18 08:09 Physical Exam: General- No acute distress Head- atraumatic Eyes- PERRL, EOMI, ENT- oropharynx clear Neck- supple, no JVD Lungs- clear to auscultation Heart- regular rhythm; no murmur Abdomen- normal bowel sounds, soft, nontender Extremities- no calf tenderness Neuro- alert, oriented x 3; PERRL, EOMI; no facial palsy; no dysarthria Skin- warm & dry
--- NOTE | 2018-11-03 07:46 | Discharge Summary ---
Date of Service November 02, 2018 Admission HPI Per Admitting Provider No significant medical history. 2 weeks history of intermittent chest pain noted on different areas of the chest , worse with motion. Nonpleuritic, no S OB, no fever, no chills. 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 Today, chest pain more intense. Patient also noted achy right-sided abdominal pain, without nausea without emesis. No constipation, no diarrhea, no dysuria symptoms. 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 Admission Exam Per Admitting Provider GENERAL: Slightly anxious, obese , no respiratory distress SKIN: Normal color, warm HEENT: [place] palpebral conjunctivae, no ptosis, dry buccal mucosa NECK : Supple, short, no tenderness CHEST : CTA, anterior chest wall tenderness HEART : RRR, no obvious murmurs ABDOMEN: Some distention, nontender EXTREMITIES : No LE swelling/tenderness, no other conspicuous deformities noted NEUROLOGIC : Coherent, no facial asymmetry, no other gross focality Principal Diagnosis Atypical Chest pain Discharge Exam General- No acute distress Head- atraumatic Eyes- PERRL, EOMI, ENT- oropharynx clear Neck- supple, no JVD Lungs- clear to auscultation Heart- regular rhythm; no murmur Abdomen- normal bowel sounds, soft, nontender Extremities- no calf tenderness Neuro- alert, oriented x 3; PERRL, EOMI; no facial palsy; no dysarthria Skin- warm & dry Discharge Data Allergies Allergy/AdvReac Type Severity Reaction Status Date / Time shellfish derived Allergy Swelling Verified 11/01/18 23:16 of Lip/Tongue/Throat Consultations 11/02/18 02:44 ED Decision to Admit Stat 11/02/18 04:25 Consult Cardiology Routine Ordered Studies 11/02/18 02:58 CT abd pelvis IV con only Urgent CT abd pelvis IV con only CLINICAL HISTORY: Right-sided abdominal pain COMPARISON STUDY: None. TECHNIQUE: The patient was scanned in a dynamic helical fashion during intravenous administration of 93 cc of Optiray 320. A dose lowering technique was utilized adhering to the principles of ALARA. CT DOSE: 385.44 mGy.cm FINDINGS: Lower chest: The heart is normal in size and configuration, without pericardial effusion. The lung bases and pleural spaces are clear. Liver: The contrast-enhanced liver is normal in size, contour, and attenuation. There is no intrahepatic biliary ductal dilatation. The hepatic veins and portal veins are patent. Gallbladder: Unremarkable. Spleen: Normal in size and attenuation. Pancreas: Unremarkable. Adrenal glands: Unremarkable. Kidneys: There is a 3 mm left renal hypodensity likely representing a cyst. There is no hydronephrosis. Bowel: There are no transition zones indicate bowel obstruction. There is no evidence of acute diverticulitis. The appendix appears normal. Peritoneum: There is no intraperitoneal free air or abdominal ascites. Vasculature: The abdominal aorta is normal in course and caliber. Adenopathy: None. Pelvic viscera: The bladder, and pelvic viscera are unremarkable. Skeletal structures: No destructive osseous lesions are seen. IMPRESSION: 1. No acute intra-abdominal or pelvic findings 2. No evidence of bowel obstruction. No evidence of free air 3. Normal appendix. No evidence of acute diverticulitis. Electronically signed by: Emmanuel Jeter M.D. 11/02/2018 6:47 AM Dictated: 11/02/18644 Transcribed: 11/02/18644 XR chest 2V routine HISTORY: Atypical chest pain COMPARISON: None. FINDINGS: The lungs are clear. Cardiac silhouette is normal in size. No pleural effusions. No pneumothorax. IMPRESSION: No acute process. Electronically signed by: Mark Pierre M.D. 11/02/2018 6:59 AM Dictated: 11/02/1859 Transcribed: 11/02/18658 Hospital Course (1) Chest pain: Atypical presentation Mostly related to musculoskeletal with reproducible tenderness Has been participated in gymnastic type exercise Troponinx 3 sets negative No arrhythmia on tele monitor Echo showed no wall motion abnormality with normal EF Continue NSAIDs PRN for pain cardiology on board Ok from cardiology standpoint to discharge home CODE STATUS FULL CODE Disposition Will discharge home today Follow up with Dr. Charles on 11/07 @ 11:05 [facility] [address], [place] [address] Phone: Total Time Total Time Spent Total Time Spent (In Minutes): 35 minutes Total Time Includes: Examination of the Patient, Discharge Planning, Medication Reconciliation, Communication With Other Providers and Other Discharge Plan Discharge Items Patient Disposition: Home - Self-Care Reason For Visit: CP Discharge Diagnosis: Atypical Chest pain Discharge Goals: Decrease discomfort, Improve disease control, Improve function and Increase independence Activity: Resume your previous activity Activity Comment: As tolerated Non-emergency contact: Primary Care Provider Call non-emergency contact if: you have any medication questions, your symptoms worsen and your pain is worsening Diet: Regular Addtl Provider Instructions: Follow up with your new primary care provider Dr. Charles on 11/07 @ 11:05 AM [facility] [address], [place] [address] Phone: Prescriptions: No Action No Known Home Medications RF: 0 Stand-Alone Forms: [facility] Discharge Orders: Discharge Order (Routine); Ordered 11/02/18 Ordered By: Chetna Forrester Admission Data Admit Date/Time: 11/02/18 03:20 Attending Provider: Chetna Forrester Admit Provider: Buster Crawley Primary Care Provider: PCP,NO Other Providers: Buster Crawley ; Jasen Arshad Service: Telemetry Medical Other Interventions: Discharge Summary Assessment (RN) Last Done: 11/02/18 15:49 DC Date/Time DO NOT enter until pt leaves facility: 11/02/18 16:10
== END 2018-11-02 16:10 | disposition home or self-care (01) ==
LOC: 2W 22:38 → ED 22:38 → 2W 11-02 04:00